=== PATIENT | male | born 1975 | race Two or more races ===

== ENCOUNTER → 2025-06-25 | Outpatient (CLI) | payer MEDICARE, MEDICAID, SELFPAY ==
--- NOTE | 2025-06-25 12:07 | XR_ITS ---
Examination: Knee, right , 3 views Technique: Knee AP, lateral, oblique 3 views Date and time of exam: June 25, 2025 1259 hrs. Indications: Right knee pain and swelling beginning 2 months ago. Findings: Small to moderate knee effusion No fracture or dislocation Mild narrowing medial joint space Impression: Small to moderate knee effusion.
== END | disposition home or self-care (01) ==
PROVIDERS: PCP Nurse Practitioner Family; Referring Provider Nurse Practitioner Family; Visit Provider Nurse Practitioner Family
DX: M25.461 Effusion, right knee (principal)
CPT/HCPCS: 73562